=== PATIENT | male | born 1945 | race Caucasian/White ===

== ENCOUNTER 2023-05-26 08:27 | Emergency (ER) | payer MEDICARE ==
[~2023-05-26] VITALS: Ht 167.6 cm; Wt 118.8 kg
[~2023-05-26 08:27] MED LIST: IRBE150; Nadolol40 MG; Percocet 5-3251 EACH PO; Zovirax800 MG PO
[2023-05-26] MEDS ORDERED: Morphine Sulfate 4 MG/1 ML Injection IV ONE (09:15)
[2023-05-26] MEDS ORDERED: Ondansetron HCl 2 MG / ML 2ML Vial IV ONE (09:15)
[2023-05-26 09:19] LABS: Source, Urine Voided
[2023-05-26 09:23] LABS: Appearance, Urine Clear (Clear); Bilirubin, Urine Neg (Neg); Blood, Urine 5+ (Neg); Color, Urine Yellow (P-Yellow); Glucose Qualitative, Urine Neg (Neg); Ketones, Urine Neg (Neg); Leukocyte Esterase, Urine Neg (Neg); Nitrite, Urine Neg (Neg); Protein, Urine 1+ (Neg); Specific Gravity, Urine 1.025 (1.003-1.022); Urobilinogen, Urine NORM (Normal)
[2023-05-26 09:32] LABS: BASOPHILS ABSOLUTE AUTO 0.11 K/mm3 (0.00-0.23); BASOPHILS PERCENT AUTO 1 % (0-2); EOSINOPHILS ABSOLUTE AUTO 0.24 K/mm3 (0.00-0.68); EOSINOPHILS PERCENT AUTO 2 % (0-6); IMMATURE GRAN PERCENT AUTO 1 % (0-1); LYMPHOCYTES ABSOLUTE AUTO 1.86 K/mm3 (0.84-5.20); LYMPHOCYTES PERCENT AUTO 12 % (21-46); MONOCYTES ABSOLUTE AUTO 0.89 K/mm3 (0.16-1.47); MONOCYTES PERCENT AUTO 6 % (4-13); Mean Corpuscular HGB 30.5 pg (26.0-34.0); Mean Corpuscular HGB Conc 33.3 g/dL (31.5-36.5); Mean Corpuscular Volume 91 fL (80-100); Mean Platelet Volume 9.6 fL (9.1-12.4); NEUTROPHILS ABSOLUTE AUTO 11.89 K/mm3 (1.96-9.15); NEUTROPHILS PERCENT AUTO 79 % (41-73); Platelet Count 238 K/mm3 (150-400); RDW Coefficient Variation 14.2 % (11.7-14.2); RDW Standard Deviation 47.8 fL (35.1-46.3); Red Blood Cell Count 5.25 M/mm3 (4.30-5.90); White Blood Cell Count 15.09 K/mm3 (4.00-11.30)
[2023-05-26 09:33] LABS: Bacteria Rare /hpf; Red Blood Cells, Urine 25-50 /hpf (0-2); Squamous Epithelial Cells Not Seen /hpf (Few); White Blood Cells, Urine 0-2 /hpf (0-5)
[2023-05-26 09:50] LABS: Albumin, Blood 3.9 g/dL (3.4-5.0); Bilirubin, Total 0.6 mg/dL (0.1-1.0); Bun/Creatinine Ratio 15.3 (12.0-20.0); Calcium, Blood 9.7 mg/dL (8.5-10.1); Creatinine, Blood 1.31 mg/dL (0.60-1.20); Globulin, Blood 3.8 g/dL (2.2-4.0); Potassium, Blood 4.8 mmol/L (3.5-5.5); Total Protein, Blood 7.7 g/dL (6.4-8.2)
[2023-05-26] MEDS ORDERED: ONDA4ODT MM (10:19)
[2023-05-26] MEDS ORDERED: HYDROCODONE-AC1 EA10 PO (10:19)
[2023-05-26] MEDS ORDERED: Colace100 MG PO (10:19)
[2023-05-26 11:00] VITALS: BP 147/93
== END 2023-05-26 11:03 | disposition home or self-care (01) ==
LOC: ER 08:27
PROVIDERS: Emergency Medicine
DX: N13.2 Hydronephrosis with renal and ureteral calculous obstruction (principal); F03.90 Unspecified dementia, unspecified severity, without behavioral disturbance, psychotic disturbance, mood disturbance, and anxiety; J44.9 Chronic obstructive pulmonary disease, unspecified; Z88.5 Allergy status to narcotic agent; Z79.899 Other long term (current) drug therapy; Z87.891 Personal history of nicotine dependence
CPT/HCPCS: 74177; 80053; 81001; 83690; 85025; 87086; 93005; 93010; 96374-59; 96375-59; 99284-25; J2270; J2405; Q9967

== ENCOUNTER 2023-05-29 13:41 | Emergency (ER) | payer MEDICARE ==
[~2023-05-29] VITALS: Ht 170.2 cm; Wt 120.2 kg
[~2023-05-29 13:41] MED LIST changes: +Colace100 MG PO; +HYDROCODONE-AC1 EA10 PO; +ONDA4ODT MM
[2023-05-29 15:12] LABS: BASOPHILS ABSOLUTE AUTO 0.07 K/mm3 (0.00-0.23); BASOPHILS PERCENT AUTO 0 % (0-2); EOSINOPHILS PERCENT AUTO 1 % (0-6); Hematocrit 43.5 % (37.0-53.0); Hemoglobin 14.8 g/dL (13.5-17.5); IMMATURE GRAN PERCENT AUTO 1 % (0-1); LYMPHOCYTES ABSOLUTE AUTO 1.76 K/mm3 (0.84-5.20); LYMPHOCYTES PERCENT AUTO 11 % (21-46); MONOCYTES ABSOLUTE AUTO 2.06 K/mm3 (0.16-1.47); MONOCYTES PERCENT AUTO 13 % (4-13); Mean Corpuscular HGB 30.3 pg (26.0-34.0); Mean Corpuscular Volume 89 fL (80-100); Mean Platelet Volume 9.7 fL (9.1-12.4); NEUTROPHILS ABSOLUTE AUTO 12.19 K/mm3 (1.96-9.15); NEUTROPHILS PERCENT AUTO 75 % (41-73); Platelet Count 218 K/mm3 (150-400); RDW Coefficient Variation 14.3 % (11.7-14.2); RDW Standard Deviation 46.3 fL (35.1-46.3); Red Blood Cell Count 4.89 M/mm3 (4.30-5.90); White Blood Cell Count 16.28 K/mm3 (4.00-11.30)
[2023-05-29 15:33] LABS: Albumin, Blood 3.3 g/dL (3.4-5.0); Albumin/Globulin Ratio 0.8 (0.8-1.8); Bilirubin, Total 1.3 mg/dL (0.1-1.0); Bun/Creatinine Ratio 19.1 (12.0-20.0); Calcium, Blood 9.2 mg/dL (8.5-10.1); Creatinine, Blood 1.57 mg/dL (0.60-1.20); Globulin, Blood 3.9 g/dL (2.2-4.0); Potassium, Blood 3.9 mmol/L (3.5-5.5); Total Protein, Blood 7.2 g/dL (6.4-8.2)
[2023-05-29] MEDS ORDERED: Tamsulosin HCl 0.4 MG Cap PO ONE (15:40)
[2023-05-29] MEDS ORDERED: Lactated Ringer's 1,000 ML IV ONE (15:40)
[2023-05-29 16:04] LABS: Source, Urine Clean Catch
[2023-05-29 16:20] LABS: Appearance, Urine Clear (Clear); Bilirubin, Urine Neg (Neg); Blood, Urine 2+ (Neg); Color, Urine Yellow (P-Yellow); Glucose Qualitative, Urine Neg (Neg); Ketones, Urine Neg (Neg); Leukocyte Esterase, Urine Neg (Neg); Nitrite, Urine Neg (Neg); Protein, Urine 2+ (Neg); Urobilinogen, Urine NORM (Normal)
[2023-05-29 16:31] LABS: Bacteria Rare /hpf; Red Blood Cells, Urine 0-2 /hpf (0-2); Squamous Epithelial Cells Not Seen /hpf (Few); White Blood Cells, Urine 0-2 /hpf (0-5)
[2023-05-29 17:30] VITALS: BP 139/70
[2023-05-29] MEDS ORDERED: Ciprofloxacin 500 MG Tab PO ONE (17:35)
[2023-05-29] MEDS ORDERED: Flomax0.4 MG PO (17:39)
[2023-05-29] MEDS ORDERED: Cipro500 MG PO (17:39)
== END 2023-05-29 17:56 | disposition home or self-care (01) ==
LOC: ER 13:41
PROVIDERS: Physician Assistant
DX: N20.0 Calculus of kidney (principal); K59.00 Constipation, unspecified; D72.829 Elevated white blood cell count, unspecified; R79.89 Other specified abnormal findings of blood chemistry; F03.90 Unspecified dementia, unspecified severity, without behavioral disturbance, psychotic disturbance, mood disturbance, and anxiety; J44.9 Chronic obstructive pulmonary disease, unspecified; Z88.5 Allergy status to narcotic agent; Z79.899 Other long term (current) drug therapy
CPT/HCPCS: 74018; 80053; 81001; 83605; 83690; 84145; 85025; 96360; 96361; 99284-25; A9270; J7120

== ENCOUNTER → 2024-03-22 | Outpatient (CLI) | payer MEDICARE, OTHER ==
[~2024-03-22] MED LIST changes: +Cipro500 MG PO; +Flomax0.4 MG PO
== END ==
LOC: LAB SHORT 13:49 → PLD 13:49
DX: D48.5 Neoplasm of uncertain behavior of skin (principal)
CPT/HCPCS: 88312

== ENCOUNTER → 2025-03-13 | Outpatient (CLI) | payer MEDICARE, OTHER ==
[~2025-03-13] MED LIST changes: +ALLO100 PO; +Aspir 8181 MG PO; +Betamethasone D60 ML TOP; +ESCI10 PO; +FOLI1 PO; +GEMTESA75 MG PO; +MAGNESIUM250 MG PO; +METTREX2.5 PO; +MULVITA PO; -Nadolol40 MG; +Nadolol40 MG PO; +TAMSULOSIN HCL0.4 M1 PO; +TELM80 PO; +VITAMIN D325 MC3 PO
[2025-03-13 11:10] LABS: Source, Urine Clean Catch
[2025-03-13 12:06] LABS: Bilirubin, Urine Neg (Neg); Color, Urine Yellow (P-Yellow); Glucose Qualitative, Urine Neg (Neg); Ketones, Urine Neg (Neg); Leukocyte Esterase, Urine Neg (Neg); Protein, Urine 1+ (Neg); Specific Gravity, Urine 1.025 (1.003-1.022); Urobilinogen, Urine NORM (Normal)
[2025-03-13 12:23] LABS: Red Blood Cells, Urine 0-2 /hpf (0-2); White Blood Cells, Urine 0-2 /hpf (0-5)
== END ==
LOC: LAB SHORT 07:30 → LAB 07:30
PROVIDERS: Internal Medicine
DX: N39.0 Urinary tract infection, site not specified (principal)
CPT/HCPCS: 81001

== ENCOUNTER 2025-03-28 10:01 | Emergency (ER) | payer MEDICARE, OTHER ==
[~2025-03-28] VITALS: Ht 167.6 cm; Wt 90.7 kg
[2025-03-28 13:27] VITALS: BP 212/159
== END 2025-03-28 14:15 | disposition home or self-care (01) ==
LOC: ER 10:01
DX: S00.12XA Contusion of left eyelid and periocular area, initial encounter (principal); S00.212A Abrasion of left eyelid and periocular area, initial encounter; W19.XXXA Unspecified fall, initial encounter
CPT/HCPCS: 99283